=== PATIENT | male | born 1990 | race Two or more races ===

== ENCOUNTER 2022-07-06 15:53 | Inpatient (IN) | payer OTHER ==
[~2022-07-06] VITALS: Ht 190.5 cm; Wt 108.9 kg
== END 2022-07-09 22:19 | disposition home or self-care (01) | DRG 351 ==
LOC: ER 15:53 → SEC-K 22:13 → SURH 22:13 → SURG 22:13 → MEDJ 07-07 03:26 → SEC-K 07-07 04:35 → SURG 07-07 04:36 → SURH 07-08 10:26
PROVIDERS: Specialist; ADMIT Internal Medicine; ATTEND Internal Medicine
PROC: BW21ZZZ Computerized Tomography (CT Scan) of Abdomen and Pelvis (ICD-10-PCS; 2022-07-06)
PROC: BV44ZZZ Ultrasonography of Scrotum (ICD-10-PCS; 2022-07-06)
PROC: 0YU50JZ Supplement Right Inguinal Region with Synthetic Substitute, Open Approach (ICD-10-PCS; principal; 2022-07-07 16:00)
DX: K40.90 Unilateral inguinal hernia, without obstruction or gangrene, not specified as recurrent (principal); A09 Infectious gastroenteritis and colitis, unspecified; N50.82 Scrotal pain; Z20.822 Contact with and (suspected) exposure to COVID-19